=== PATIENT | female | born 1995 | race Caucasian/White ===

== ENCOUNTER 2020-07-26 10:08 | Emergency (ER) | payer OTHER, SELFPAY ==
[2020-07-26 10:24] VITALS: BP 122/85; PULSE 67; RESP 16; TEMP 36.6; O2SAT 99; BMI 32.8
--- NOTE | 2020-07-26 10:34 | ED.EYEPROB ---
HPI - Eye Problem General Chief complaint: Eye Problems Stated complaint: graves disease irritation eye Time Seen by Provider: 07/26/20 10:23 Source: patient Mode of arrival: ambulatory Limitations: no limitations History of Present Illness HPI Narrative: 24 y/o female with history of Grave's disease, s/p thyroidectomy presenting with right eye irritation and redness since yesterday. She feels like there is something in her eye. She has a history of right sided ptosis due to her Grave's and this is unchanged per patient. She is compliant with her medications. She is due to get surgery on her bilateral eyes on 08/09 for ptosis on the right and droopy eyelid on the left. She is followed by opthomology at [facility]. She currently denies vision changes, drainage, headache. Admits to cold intolerance but denies all other signs/symptoms of hypo/hyperthyroidism. MD chief complaint: eye pain and eye redness Onset (ago): day(s) (1) Onset description: gradual Duration: constant Location: right eye Eye Symptoms: burning, redness and foreign body sensation Mechanism: none Severity: mild Associated symptoms: headache Treatments Prior to Arrival: none Related Data Previous Rx's Medication Instructions Recorded gentamicin 1 applic TOPICAL TID #15 g 07/26/20 Allergies Allergy/AdvReac Type Severity Reaction Status Date / Time No Known Allergies Allergy Unverified 06/24/20 19:06 [No Known Allergies*] Review of Systems Review of Systems: Constitutional: No Fever, No Chills ENT/Mouth: No sore throat, No Rhinorrhea, No Swallowing Difficulty Eyes: + Eye Pain, + Swelling, + Redness Cardiovascular: No Chest Pain, No SOB, No Orthopnea, No Edema Respiratory: No Cough, No Sputum, No Wheezing, No dyspnea Gastrointestinal: No Nausea, No Vomiting, No Diarrhea, No abdominal Pain, No Hematochezia, No Melena Genitourinary: No Dysuria, No Urinary Frequency, No Hematuria Musculoskeletal: No joint pain, No Myalgias Skin: No Skin Lesions, No rash Neuro: No Weakness, No Numbness, No Dizziness, No Headache Psych: No Anxiety/Panic, No Depression Heme/Lymph: No Bruising, No Lymphadenopathy Endocrine: No Polyuria, No Polydipsia, +cold intolerance, no hair loss, no weight gain [facility] Past Medical History Medical History (Updated 07/26/20 @ 12:45 by LETTY Alex) Graves disease Surgical History (Updated 07/26/20 @ 10:29 by Atul Freeman) H/O thyroidectomy Social History Social History Advance Directives: No Advance Directives Information Provided: No Physical Exam Vital Signs: Vital Signs: Vital Signs Temp Pulse Resp BP Pulse Ox 07/26/20 12:32 98.2 F 61 18 130/91 H 100 07/26/20 10:24 98 F 67 16 122/85 99 Body Mass Index 32.8 Appearance: Alert. Oriented X3. No acute distress. Eyes: Pupils equal, round and reactive to light. right eye ptosis. left superior eye lid dropping. Fluorescene exam shows small corneal abrasion inferiorly/medially. ENT: Pharynx normal. Neck: Normal inspection. Neck supple. CVS: Normal heart rate and rhythm. Pulses normal. Respiratory: No respiratory distress. Breath sounds normal. Abdomen: Soft and nontender. +BS x4 Skin: Skin warm and dry. Normal skin color. Normal skin turgor. No rashes. Extremities: No lower extremity edema. Neuro: Oriented X 3. No motor deficit. No sensory deficit. Course Course Course Narrative: fluorscene exam showed small corneal abrasion. Labs show elevated TSH 38 but T4 is normal. Will give Rx for abx drop to help prevent infection. She will f/u with her automotive technology instructor & life science taxonomist this week. MDM - Eye Problem Lab Data Result diagrams: 07/26/20 10:41 07/26/20 10:41 Labs: Lab Results 07/26/20 07/26/20 07/26/20 Range/Units 10:41 10:41 10:41 WBC 7.1 (4.8-10.8) X10*3/uL RBC 4.17 L (4.20-5.50) X10*6/uL Hgb 12.5 (12.0-16.0) g/dl Hct 38.3 (37-47) % MCV 91.8 (80-98) fL MCH 30.0 (27.0-33.0) pg MCHC 32.6 (31.0-35.0) g/dl RDW 13.3 (11.0-16.0) % Plt Count 190 (160-400) X10*3/uL MPV 11.9 (9.4-12.3) fL Immature Gran % (Auto) 0.3 (0.0-0.4) % Neut % (Auto) 72.3 (45-73) % Lymph % (Auto) 19.5 L (20-40) % [place] % (Auto) 7.8 (2-11) % Eos % (Auto) 0.0 (0-4) % Baso % (Auto) 0.1 (0-2) % Lymph # (Auto) 1.4 (1.2-4.9) X10*3/uL [place] # (Auto) 0.6 (0.1-1.2) X10*3/uL Eos # (Auto) 0.0 (0.0-0.4) X10*3/uL Baso # (Auto) 0.0 (0.0-0.2) X10*3/uL Abs Immat Gran (auto) 0.02 (0.00-0.03) X10*3/uL Absolute Neuts (auto) 5.1 (2.0-8.3) X10*3/uL Absolute Nucleated RBC 0.000 (0.0-0.012) X10*3/uL Nucleated RBC % (auto) 0.0 (0.0-0.2) /100WBC Sodium 138 (135-145) mmol/L Potassium 4.2 (3.3-5.1) mmol/l Chloride 104 (96-108) mmol/L Carbon Dioxide 27 (22-29) mmol/L Anion Gap 11 L (12-20) BUN 9 (9-16) mg/dL Creatinine 0.65 (0.5-1.4) mg/dL Estim Creat Clear Calc 139.3 Estimated GFR > 60 Random Glucose 88 (60-115) mg/dL Calcium 8.3 L (8.4-10.2) mg/dL TSH 39.27 H (0.32-4.0) mIU/mL Free T4 0.81 (0.71-1.85) ng/dL Discharge Plan Discharge Clinical Impression: Corneal abrasion Qualifiers: Encounter type: initial encounter Laterality: right Qualified Code(s): S05.01XA - Injury of conjunctiva and corneal abrasion without foreign body, right eye, initial encounter Patient Disposition: Home, Self-Care Instructions: Corneal Abrasion (ED) Additional Instructions: Use saline eye drops three times per day to keep your eye moistened. Use the antibiotic drop to help prevent infection, Follow up with your eye doctor this week. Follow up with your Project Management Specialist this week. Prescriptions: New gentamicin 0.1 % ointment 1 applic topical TID Qty: 15 RF: 0 Interventions: ED Discharge Assessment Last Done: 07/26/20 12:54
[2020-07-26 10:51] LABS: MANUAL DIFF FLAG NO
[2020-07-26 10:56] LABS: Basophils Percent Auto 0.1 % (0-2); Hematocrit 38.3 % (37-47); Hemoglobin 12.5 g/dl (12.0-16.0); Imm Gran Abs Auto 0.02 X10*3/uL (0.00-0.03); Imm Gran Pct Auto 0.3 % (0.0-0.4); Lymphocytes Absolute Auto 1.4 X10*3/uL (1.2-4.9); Lymphocytes Percent Auto 19.5 % (20-40); Mean Corpuscular HGB Conc 32.6 g/dl (31.0-35.0); Mean Corpuscular Volume 91.8 fL (80-98); Mean Platelet Volume 11.9 fL (9.4-12.3); Monocytes Absolute Auto 0.6 X10*3/uL (0.1-1.2); Monocytes Percent Auto 7.8 % (2-11); Neutrophils Absolute Auto 5.1 X10*3/uL (2.0-8.3); Neutrophils Percent Auto 72.3 % (45-73); Platelet Count 190 X10*3/uL (160-400); Red Blood Count 4.17 X10*6/uL (4.20-5.50); Red Cell Distribution Width 13.3 % (11.0-16.0); White Blood Count 7.1 X10*3/uL (4.8-10.8)
[2020-07-26 11:21] LABS: Anion Gap 11 (12-20); Blood Urea Nitrogen 9 mg/dL (9-16); Calcium 8.3 mg/dL (8.4-10.2); Carbon Dioxide 27 mmol/L (22-29); Chloride 104 mmol/L (96-108); Creatinine Clr Calc Pharmacy 139.3; Estimated Glomerular Filt Rate > 60; Glucose Random 88 mg/dL (60-115); Potassium 4.2 mmol/l (3.3-5.1); Sodium 138 mmol/L (135-145)
[2020-07-26 11:42] LABS: TSH reflex Free T4 39.27 mIU/mL (0.32-4.0)
[2020-07-26 12:32] VITALS: BP 130/91; PULSE 61; RESP 18; TEMP 36.8; O2SAT 100
[2020-07-26 12:42] LABS: Free T4 (Free Thyroxine) 0.81 ng/dL (0.71-1.85)
[2020-07-26] MEDS: Fluorescein Sodium STRIP 1 STRIP EYE-RIGHT (12:44)
[2020-07-26] MEDS: Tetracaine HCl/PF 0.5% Oph Sol 4 ML DROPS 1 DROP EYE-RIGHT (12:44)
[2020-07-27 07:32] LABS: Triiodothyronine T3 Total 62 ng/dL (76-181)
== END 2020-07-26 13:02 | disposition home or self-care (01) ==
PROVIDERS: Physician Assistant; Emergency Provider Emergency Medicine; PCP Nurse Practitioner
DX: S05.01XA Injury of conjunctiva and corneal abrasion without foreign body, right eye, initial encounter (principal); H57.11 Ocular pain, right eye; G44.309 Post-traumatic headache, unspecified, not intractable; X58.XXXA Exposure to other specified factors, initial encounter; Y93.9 Activity, unspecified; Y92.9 Unspecified place or not applicable; Z79.899 Other long term (current) drug therapy
CPT/HCPCS: 36415; 80048; 84439; 84443; 84480; 85025; 99283

== ENCOUNTER 2020-07-30 15:23 | Outpatient (REF) | payer OTHER, SELFPAY ==
[2020-07-30 17:15] LABS: COVID-19 Test Negative (Negative)
== END 2020-07-30 15:24 | disposition home or self-care (01) ==
LOC: HO.LAB 15:23
PROVIDERS: Visit Provider Internal Medicine
DX: Z20.828 Contact with and (suspected) exposure to other viral communicable diseases (principal)
CPT/HCPCS: 87635

== ENCOUNTER 2020-09-06 11:21 | Outpatient (REF) | payer OTHER, SELFPAY | END 2020-09-06 11:22 | disposition home or self-care (01) | LOC: HO.LAB 11:21 | PROVIDERS: Visit Provider Internal Medicine | DX: Z20.828 Contact with and (suspected) exposure to other viral communicable diseases (principal) | CPT/HCPCS: C9803; U0003 ==

== ENCOUNTER 2021-07-29 02:02 | Inpatient (IN) | payer OTHER, SELFPAY ==
[2021-07-29 02:55] VITALS: BP 114/75; PULSE 63; RESP 16; TEMP 36.1; O2SAT 100; BMI 30.8
[2021-07-29] MEDS: traZODone HCL 50 MG TABLET PO (03:41)
[2021-07-29 06:00] VITALS: BP 108/54; PULSE 51; RESP 18; TEMP 36.4; O2SAT 97
--- NOTE | 2021-07-29 07:12 | PC.ADMIT ---
Pt is a 25 years old female transferred from [facility] with concerns of SI with a plan to stab herself. Tox negative, covid negative. Pt alert and oriented. pt reported being homeless and feeling helpless and hopeless. Upon admission pt denies SI/HI. Pt reports feeling depressed and low self esteem. speech is normal with normal rhythm and jone. Provider aviation ordnance officer notified, admission orders obtained.
[2021-07-29 08:46] LABS: MANUAL DIFF FLAG NO
[2021-07-29 09:00] LABS: Hematocrit 43.2 % (37-47); Imm Gran Abs Auto 0.01 X10*3/uL (0.00-0.03); Imm Gran Pct Auto 0.3 % (0.0-0.4); Lymphocytes Absolute Auto 1.4 X10*3/uL (1.2-4.9); Lymphocytes Percent Auto 39.3 % (20-40); Mean Corpuscular HGB Conc 32.4 g/dl (31.0-35.0); Mean Corpuscular Hemoglobin 29.7 pg (27.0-33.0); Mean Corpuscular Volume 91.5 fL (80-98); Mean Platelet Volume 12.4 fL (9.4-12.3); Monocytes Absolute Auto 0.3 X10*3/uL (0.1-1.2); Monocytes Percent Auto 9.4 % (2-11); Neutrophils Absolute Auto 1.8 X10*3/uL (2.0-8.3); Platelet Count 180 X10*3/uL (160-400); Red Blood Count 4.72 X10*6/uL (4.20-5.50); Red Cell Distribution Width 12.8 % (11.0-16.0); White Blood Count 3.6 X10*3/uL (4.8-10.8)
[2021-07-29 09:20] VITALS: BP 119/69; PULSE 80; RESP 16; TEMP 36.6; O2SAT 99
[2021-07-29] MEDS: Sulfamethox/Trimeth 800/160 TABLET 1 TAB PO ×2 (11:21→21:47)
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
[2021-07-29 18:00] VITALS: BP 116/64; PULSE 78; RESP 16; TEMP 36.2
[2021-07-29] MEDS: OLANZapine 10 MG TABLET PO (21:47)
[2021-07-29] MEDS: Topiramate 25 MG TABLET PO (21:47)
[2021-07-29] MEDS: LORazepam 1 MG TABLET PO (21:49)
[2021-07-30 06:00] VITALS: BP 114/73; PULSE 70; RESP 18; TEMP 36.6; O2SAT 98
[2021-07-30] MEDS: Levothyroxine Sodium 150 MCG TABLET PO (06:34)
[2021-07-30 07:51] LABS: Estimated Average Glucose 91 mg/dL; Hemoglobin A1c % 4.8 %
[2021-07-30 07:56] LABS: Alanine Aminotransferase 11 U/L (0-31); Albumin Level 4.2 g/dL (3.5-5.0); Alkaline Phosphatase 82 U/L (39-117); Anion Gap 13 (12-20); Aspartate Amino Transferase 15 U/L (5-31); Blood Urea Nitrogen 10 mg/dL (9-16); Carbon Dioxide 22 mmol/L (22-29); Chloride 104 mmol/L (96-108); Cholesterol 138 mg/dL; Creatinine Clr Calc Pharmacy 98.9; Estimated Glomerular Filt Rate > 60; Glucose Fasting 81 mg/dL (60-99); HDL Cholesterol 46 mg/dL; LDL Cholesterol Calculated 83 mg/dl; Potassium 4.7 mmol/L (3.3-5.1); Sodium 134 mmol/L (135-145); Total Protein 7.4 g/dL (6.5-8.0); Triglycerides 49 mg/dL
[2021-07-30 08:16] LABS: Free T4 (Free Thyroxine) 0.89 ng/dL (0.71-1.85)
[2021-07-30] MEDS: Multivitamin TABLET 1 TAB PO (09:05)
[2021-07-30] MEDS: Topiramate 25 MG TABLET PO ×2 (09:05→20:13)
[2021-07-30] MEDS: Thiamine HCL 100 MG TABLET PO (09:05)
[2021-07-30] MEDS: Sulfamethox/Trimeth 800/160 TABLET 1 TAB PO ×2 (13:49→20:13)
--- NOTE | 2021-07-30 19:03 | HO.PSYCHPN ---
Subjective Subjective Date of Service: 07/30/21 Reason For Visit: Bipolar Disorder, Substance Abuse Subjective Notes: Conditional Voluntary Medical Problems Affecting Mental Status: No Interim History: Barbie reports that she is feeling safe and that she is wondering when she can go home. Staff have reported that she appears depressed She is visible on the milieu Medication Compliance: Yes Side effects from medications: No Attending Groups: Intermittent Review of Systems Acute medical concerns: No Mental Status Exam Mental Status Exam Patient Appearance: Appropriate Patient Orientation: Person, Place, Time and Situation Level of Consciousness: Awake and Alert Patient Behavior: Appropriate, Talkative, Cooperative and Good Eye Contact Mood Description: Depressed and Anxious Affect Description: Flat Patient Cognition Impaired: No Ability to Follow Directions: Good Speech Pattern: Spontaneous Speech Memory Description: Intact Hallucinations: Auditory and Visual Delusions: Grandiose (reports hx) Thought Process: Rumination Thought Content: positive for Perseveration, negative for Suicidal Ideation or negative for Homicidal Ideation Depressive Symptoms: Increased Anxiety, Insomnia, Increased Irritability, Difficulty Sleeping, Hopelessness, Thoughts of /Suicide and Difficulty Concentrating Judgement: Fair Diagnostics Vital Signs (24Hr): Vital Signs - 24 hr 07/30/21 06:00 Temperature 98 F Pulse Rate 70 Respiratory Rate 18 Blood Pressure 114/73 Pulse Oximetry 98 Body Mass Index 30.8 Labs Results: 07/29/21 08:07 07/30/21 07:11 Labs: Laboratory Results - last 48 hr 07/29/21 07/30/21 07/30/21 08:07 07:11 07:11 WBC 3.6 L RBC 4.72 Hgb 14.0 Hct 43.2 MCV 91.5 MCH 29.7 MCHC 32.4 RDW 12.8 Plt Count 180 MPV 12.4 H Immature Gran % (Auto) 0.3 Neut % (Auto) 51.0 Lymph % (Auto) 39.3 [place] % (Auto) 9.4 Eos % (Auto) 0.0 Baso % (Auto) 0.0 Lymph # (Auto) 1.4 [place] # (Auto) 0.3 Eos # (Auto) 0.0 Baso # (Auto) 0.0 Abs Immat Gran (auto) 0.01 Absolute Neuts (auto) 1.8 L Absolute Nucleated RBC 0.000 Nucleated RBC % (auto) 0.0 Sodium 134 L Potassium 4.7 Chloride 104 Carbon Dioxide 22 Anion Gap 13 BUN 10 Creatinine 0.88 Estim Creat Clear Calc 98.9 Estimated GFR > 60 Fasting Glucose 81 Estimat Average Glucose 91 Hemoglobin A1c % 4.8 Calcium 9.0 D Total Bilirubin 1.0 AST 15 ALT 11 Alkaline Phosphatase 82 Total Protein 7.4 Albumin 4.2 Triglycerides 49 Cholesterol 138 LDL Cholesterol, Calc 83 HDL Cholesterol 46 Free T4 0.89 Medications Medications Current Medications Acetaminophen (Acetaminophen 325 Mg Tablet) 650 mg PO Q6H PRN PRN Reason: Headache/Pain Mild Scale (1-3) Al Hydroxide/Mg Hydroxide (Magnesium Hydrox/Alum Hydrox 30 Ml Oral.Susp) 30 ml PO Q6H PRN PRN Reason: Heartburn/Nausea Hydroxyzine HCl (Hydroxyzine Hcl 50 Mg Tablet) 50 mg PO TID PRN PRN Reason: Anxiety Levothyroxine Sodium (Levothyroxine Sodium 150 Mcg Tablet) 150 mcg PO DAILY@0600 [facility] Last Admin: 07/30/21 06:34 Dose: 150 mcg Documented by: Lorazepam (Lorazepam 1 Mg Tablet) 1 mg PO Q6H PRN PRN Reason: Alcohol Withdrawal Last Admin: 07/29/21 21:49 Dose: 1 mg Documented by: Magnesium Hydroxide (Milk Of Magnesia 30 Ml Oral.Susp) 30 ml PO DAILY PRN PRN Reason: Constipation Multivitamins/Vitamin C (Multivitamin Tablet) 1 tab PO DAILY [facility] Last Admin: 07/30/21 09:05 Dose: 1 tab Documented by: Olanzapine (Olanzapine 10 Mg Tablet) 10 mg PO BEDTIME [facility] Last Admin: 07/29/21 21:47 Dose: 10 mg Documented by: Thiamine HCl (Thiamine Hcl 100 Mg Tablet) 100 mg PO DAILY [facility] Last Admin: 07/30/21 09:05 Dose: 100 mg Documented by: Topiramate (Topiramate 25 Mg Tablet) 25 mg PO BID [facility] Last Admin: 07/30/21 09:05 Dose: 25 mg Documented by: Trazodone HCl (Trazodone Hcl 50 Mg Tablet) 50 mg PO BEDTIME PRN PRN Reason: Insomnia Last Admin: 07/29/21 03:41 Dose: 50 mg Documented by: Trimethoprim/Sulfamethoxazole (Sulfamethox/Trimeth 800/160 Tablet) 1 tab PO Q12H [facility] Stop: 08/03/21 20:00 Last Admin: 07/30/21 13:49 Dose: 1 tab Documented by: Allergies Allergies Allergy/AdvReac Type Severity Reaction Status Date / Time No Known Allergies Allergy Unverified 06/24/20 19:06 [No Known Allergies*] Assessment & Plan Assessment & Plan (1) Bipolar disorder: Status: Acute Code(s): F31.9 - Bipolar disorder, unspecified Assessment and Plan: Pt describes rapid cycling sx (2) PTSD (post-traumatic stress disorder): Status: Acute Code(s): F43.10 - Post-traumatic stress disorder, unspecified (3) Alcohol use disorder, severe, dependence: Status: Acute Code(s): F10.20 - Alcohol dependence, uncomplicated Assessment and Plan: ~4 days per week, 5-6 shots, Cognac (4) Cocaine abuse: Status: Acute Code(s): F14.10 - Cocaine abuse, uncomplicated Assessment and Plan: to assist in mgt of depressive sx. (5) Cannabis use disorder, severe, dependence: Status: Acute Code(s): F12.20 - Cannabis dependence, uncomplicated Assessment and Plan: Regular use to help with mood mgt. Assessment and Plan: 25 yo female with reports of bipolar disorder, mood cycling ~ every few weeks, PTSD, Alcohol, Cannabis, Cocaine use disorder and a history of ADHD. Pt reports recent SI and failed Lamictal trial~2 weeks (50 mg). Pt also with Graves Disease s/p thyroidectomy and current UTI. Plan: Olanzapine 10 mg HS for mood stabilization CIWA MVI i tab daily Thiamine 100 mg daily Lorazepam 1 mg 1 6 prn withdrawal sx Topamax 25 mg bid to assist with cocaine craving TSH elevated at [facility] 15.10/ FT4 0.96. 07/28/21. Pt reports inconsistent compliance with levothyroxine. Will repeat values on 08/01 No change to above treatment plan I spent 10_ minutes with the patient and/or on the patient floor today, greater than?50% of which was spent counseling/coordinating care. Patient educated on: diagnosis and medication risk/benefits Informed Consent: further education needed Reason for contiued inpatient stay Substantial Risk for: rapid decompensation
[2021-07-30 19:07] VITALS: BP 115/65; PULSE 115
[2021-07-30] MEDS: OLANZapine 10 MG TABLET PO (20:13)
[2021-07-30] MEDS: traZODone HCL 50 MG TABLET PO (20:44)
[2021-07-31] MEDS: Levothyroxine Sodium 150 MCG TABLET PO (04:05)
[2021-07-31] MEDS: hydrOXYzine HCL 50 MG TABLET PO (04:05)
[2021-07-31 06:00] VITALS: BP 115/77; PULSE 85; RESP 16; TEMP 36.2; O2SAT 98
[2021-07-31] MEDS: Multivitamin TABLET 1 TAB PO (08:47)
[2021-07-31] MEDS: Thiamine HCL 100 MG TABLET PO (08:47)
[2021-07-31] MEDS: Topiramate 25 MG TABLET PO ×2 (08:47→22:19)
[2021-07-31] MEDS: LORazepam 1 MG TABLET PO (08:52)
[2021-07-31] MEDS: Sulfamethox/Trimeth 800/160 TABLET 1 TAB PO ×2 (12:20→22:19)
[2021-07-31 18:00] VITALS: BP 104/69; TEMP 36.3; O2SAT 100
--- NOTE | 2021-07-31 18:56 | HO.PSYCHPN ---
Subjective Subjective Date of Service: 07/31/21 Reason For Visit: Bipolar Disorder, Substance Abuse Subjective Notes: Conditional Voluntary Medical Problems Affecting Mental Status: No Interim History: Barbie is anxious to be able to get DC tomorrow. She reports that she is feeling much improved and she has no SI. She is anxious to be able to go to a long awaited appointment with her surgeon. She has Graves Disease and marked exophthalmos of the right eye. She has had previous surgery which is failing and she needs repair since stitches are scratching her eye, causing discomfort. She has waited two to three months for this appointment. Medication Compliance: Yes Side effects from medications: No Attending Groups: Yes Review of Systems Acute medical concerns: No Mental Status Exam Mental Status Exam Patient Appearance: Appropriate Patient Orientation: Person, Place, Time and Situation Level of Consciousness: Awake and Alert Patient Behavior: Appropriate, Talkative, Cooperative and Good Eye Contact Mood Description: Depressed and Anxious Affect Description: Flat Patient Cognition Impaired: No Ability to Follow Directions: Good Speech Pattern: Spontaneous Speech Memory Description: Intact Hallucinations: None Delusions: Not Present Thought Process: Rumination Thought Content: negative for Suicidal Ideation or negative for Homicidal Ideation Depressive Symptoms: Increased Anxiety Judgement: Fair Diagnostics Vital Signs (24Hr): Vital Signs - 24 hr 07/30/21 19:07 07/31/21 06:00 Temperature 97.1 F Pulse Rate 115 H 85 Respiratory Rate 16 Blood Pressure 115/65 115/77 Pulse Oximetry 98 Body Mass Index 30.8 Labs Results: 07/29/21 08:07 07/30/21 07:11 Labs: Laboratory Results - last 48 hr 07/30/21 07/30/21 07:11 07:11 Sodium 134 L Potassium 4.7 Chloride 104 Carbon Dioxide 22 Anion Gap 13 BUN 10 Creatinine 0.88 Estim Creat Clear Calc 98.9 Estimated GFR > 60 Fasting Glucose 81 Estimat Average Glucose 91 Hemoglobin A1c % 4.8 Calcium 9.0 D Total Bilirubin 1.0 AST 15 ALT 11 Alkaline Phosphatase 82 Total Protein 7.4 Albumin 4.2 Triglycerides 49 Cholesterol 138 LDL Cholesterol, Calc 83 HDL Cholesterol 46 Free T4 0.89 Medications Medications Current Medications Acetaminophen (Acetaminophen 325 Mg Tablet) 650 mg PO Q6H PRN PRN Reason: Headache/Pain Mild Scale (1-3) Al Hydroxide/Mg Hydroxide (Magnesium Hydrox/Alum Hydrox 30 Ml Oral.Susp) 30 ml PO Q6H PRN PRN Reason: Heartburn/Nausea Hydroxyzine HCl (Hydroxyzine Hcl 50 Mg Tablet) 50 mg PO TID PRN PRN Reason: Anxiety Last Admin: 07/31/21 04:05 Dose: 50 mg Documented by: Levothyroxine Sodium (Levothyroxine Sodium 150 Mcg Tablet) 150 mcg PO DAILY@0600 [facility] Last Admin: 07/31/21 04:05 Dose: 150 mcg Documented by: Lorazepam (Lorazepam 1 Mg Tablet) 1 mg PO Q6H PRN PRN Reason: Alcohol Withdrawal Last Admin: 07/31/21 08:52 Dose: 1 mg Documented by: Magnesium Hydroxide (Milk Of Magnesia 30 Ml Oral.Susp) 30 ml PO DAILY PRN PRN Reason: Constipation Multivitamins/Vitamin C (Multivitamin Tablet) 1 tab PO DAILY [facility] Last Admin: 07/31/21 08:47 Dose: 1 tab Documented by: Olanzapine (Olanzapine 10 Mg Tablet) 10 mg PO BEDTIME [facility] Last Admin: 07/30/21 20:13 Dose: 10 mg Documented by: Thiamine HCl (Thiamine Hcl 100 Mg Tablet) 100 mg PO DAILY [facility] Last Admin: 07/31/21 08:47 Dose: 100 mg Documented by: Topiramate (Topiramate 25 Mg Tablet) 25 mg PO BID [facility] Last Admin: 07/31/21 08:47 Dose: 25 mg Documented by: Trazodone HCl (Trazodone Hcl 50 Mg Tablet) 50 mg PO BEDTIME PRN PRN Reason: Insomnia Last Admin: 07/30/21 20:44 Dose: 50 mg Documented by: Trimethoprim/Sulfamethoxazole (Sulfamethox/Trimeth 800/160 Tablet) 1 tab PO Q12H [facility] Stop: 08/03/21 20:00 Last Admin: 07/31/21 12:20 Dose: 1 tab Documented by: Allergies Allergies Allergy/AdvReac Type Severity Reaction Status Date / Time No Known Allergies Allergy Unverified 06/24/20 19:06 [No Known Allergies*] Assessment & Plan Assessment & Plan (1) Bipolar disorder: Status: Acute Code(s): F31.9 - Bipolar disorder, unspecified Assessment and Plan: Pt describes rapid cycling sx (2) PTSD (post-traumatic stress disorder): Status: Acute Code(s): F43.10 - Post-traumatic stress disorder, unspecified (3) Alcohol use disorder, severe, dependence: Status: Acute Code(s): F10.20 - Alcohol dependence, uncomplicated Assessment and Plan: ~4 days per week, 5-6 shots, Cognac (4) Cocaine abuse: Status: Acute Code(s): F14.10 - Cocaine abuse, uncomplicated Assessment and Plan: to assist in mgt of depressive sx. (5) Cannabis use disorder, severe, dependence: Status: Acute Code(s): F12.20 - Cannabis dependence, uncomplicated Assessment and Plan: Regular use to help with mood mgt. Assessment and Plan: 25 yo female with reports of bipolar disorder, mood cycling ~ every few weeks, PTSD, Alcohol, Cannabis, Cocaine use disorder and a history of ADHD. Pt reports recent SI and failed Lamictal trial~2 weeks (50 mg). Pt also with Graves Disease s/p thyroidectomy and current UTI. Plan: Olanzapine 10 mg HS for mood stabilization CIWA MVI i tab daily Thiamine 100 mg daily Lorazepam 1 mg 1 6 prn withdrawal sx Topamax 25 mg bid to assist with cocaine craving TSH elevated at [facility] 15.10/ FT4 0.96. 07/28/21. Pt reports inconsistent compliance with levothyroxine. Will repeat values on 08/0107/30/21: No change to above treatment plan 07/31/21: Consider DC tomorrow so that individual can go to her appointment at 3pm, to have her eye examined I spent minutes with the patient and/or on the patient floor today, greater than?50% of which was spent counseling/coordinating care. Patient educated on: diagnosis and medication risk/benefits Informed Consent: understands Reason for contiued inpatient stay Substantial Risk for: rapid decompensation
[2021-07-31] MEDS: traZODone HCL 50 MG TABLET PO (22:19)
[2021-07-31] MEDS: OLANZapine 10 MG TABLET PO (22:19)
[2021-08-01 06:00] VITALS: BP 102/77; PULSE 95; TEMP 36.3; O2SAT 99
[2021-08-01] MEDS: Levothyroxine Sodium 150 MCG TABLET PO (06:55)
[2021-08-01] MEDS: Topiramate 25 MG TABLET PO (08:48)
[2021-08-01] MEDS: Multivitamin TABLET 1 TAB PO (08:48)
[2021-08-01] MEDS: Thiamine HCL 100 MG TABLET PO (08:48)
[2021-08-01 09:01] LABS: TSH reflex Free T4 17.29 uIU/mL (0.32-4.0); Thyroid Stimulating Hormone 17.11 uIU/mL (0.32-4.0)
[2021-08-01 09:05] LABS: Folate 5.8 ng/mL (> or = 4.0); Vitamin B12 228 pg/mL (200-900)
[2021-08-01 09:33] LABS: Free T4 (Free Thyroxine) 1.15 ng/dL (0.71-1.85)
[2021-08-01] MEDS: Sulfamethox/Trimeth 800/160 TABLET 1 TAB PO (14:04)
--- NOTE | 2021-08-01 15:57 | PM.PSYDC ---
DS: Providers Provider Date of Service: 08/01/21 Date of admission: 07/29/21 02:02 Date of discharge: 08/01/21 Primary care physician: Deidra Brantley NP Admitting clinician: Zaria Blackwood Attending physician on admission: Porfirio Samuel Consults: 07/29/21 10:58 Consult to Hospitalist Routine Consulting Provider: Hospitalist Reason For Exam: [facility] transfer Attending physician on discharge: Porfirio Samuel Discharging clinician: Zaria Blackwood DS: Diagnosis Discharge Diagnosis (1) Bipolar disorder: Status: Acute (2) PTSD (post-traumatic stress disorder): Status: Acute (3) Alcohol use disorder, severe, dependence: Status: Acute (4) Cocaine abuse: Status: Acute (5) Cannabis use disorder, severe, dependence: Status: Acute DS: Medications Discharge Medications Home Medications: Previous Rx's Medication Instructions Recorded gentamicin 0.1 % topical ointment 1 applic TOPICAL TID #15 g 07/26/20 levothyroxine 150 mcg tablet 150 mcg PO DAILY@0600 #30 tab 08/01/21 multivitamin (Daily-Víctor) 1 tab PO DAILY #30 tab 08/01/21 naltrexone 50 mg tablet 50 mg PO DAILY #30 tab 08/01/21 olanzapine 10 mg tablet 10 mg PO BEDTIME #15 tab 08/01/21 sulfamethoxazole 800 1 tab PO Q12H #6 tab 08/01/21 mg-trimethoprim 160 mg tablet thiamine mononitrate (vit B1) 100 100 mg PO DAILY #30 tab 08/01/21 mg tablet topiramate 25 mg tablet 25 mg PO BID #60 tab 08/01/21 Mental Status Exam Mental Status Exam Patient Appearance: Appropriate Patient Orientation: Person, Place, Time and Situation Level of Consciousness: Awake and Alert Patient Behavior: Appropriate, Talkative, Cooperative and Good Eye Contact Mood Description: Depressed and Anxious Affect Description: Flat Patient Cognition Impaired: No Ability to Follow Directions: Good Speech Pattern: Spontaneous Speech Memory Description: Intact Hallucinations: None Delusions: Not Present Thought Process: Rumination Thought Content: negative for Suicidal Ideation or negative for Homicidal Ideation Depressive Symptoms: Increased Anxiety Judgement: Fair Data Data Completed and Pending Completed studies during hospitalization [Text1]: 07/29/21 07/30/21 07/30/21 08:07 07:11 07:11 WBC 3.6 L RBC 4.72 Hgb 14.0 Hct 43.2 MCV 91.5 MCH 29.7 MCHC 32.4 RDW 12.8 Plt Count 180 MPV 12.4 H Immature Gran % (Auto) 0.3 Neut % (Auto) 51.0 Lymph % (Auto) 39.3 [place] % (Auto) 9.4 Eos % (Auto) 0.0 Baso % (Auto) 0.0 Lymph # (Auto) 1.4 [place] # (Auto) 0.3 Eos # (Auto) 0.0 Baso # (Auto) 0.0 Abs Immat Gran (auto) 0.01 Absolute Neuts (auto) 1.8 L Absolute Nucleated RBC 0.000 Nucleated RBC % (auto) 0.0 Sodium 134 L Potassium 4.7 Chloride 104 Carbon Dioxide 22 Anion Gap 13 BUN 10 Creatinine 0.88 Estim Creat Clear Calc 98.9 Estimated GFR > 60 Fasting Glucose 81 Estimat Average Glucose 91 Hemoglobin A1c % 4.8 Calcium 9.0 D Total Bilirubin 1.0 AST 15 ALT 11 Alkaline Phosphatase 82 Total Protein 7.4 Albumin 4.2 Triglycerides 49 Cholesterol 138 LDL Cholesterol, Calc 83 HDL Cholesterol 46 Vitamin B12 Folate TSH Free T4 0.89 07/30/21 08/01/21 08/01/21 07:11 08:01 08:01 WBC RBC Hgb Hct MCV MCH MCHC RDW Plt Count MPV Immature Gran % (Auto) Neut % (Auto) Lymph % (Auto) [place] % (Auto) Eos % (Auto) Baso % (Auto) Lymph # (Auto) [place] # (Auto) Eos # (Auto) Baso # (Auto) Abs Immat Gran (auto) Absolute Neuts (auto) Absolute Nucleated RBC Nucleated RBC % (auto) Sodium Potassium Chloride Carbon Dioxide Anion Gap BUN Creatinine Estim Creat Clear Calc Estimated GFR Fasting Glucose Estimat Average Glucose Hemoglobin A1c % Calcium Total Bilirubin AST ALT Alkaline Phosphatase Total Protein Albumin Triglycerides Cholesterol LDL Cholesterol, Calc HDL Cholesterol Vitamin B12 228 Folate 5.8 TSH 17.11 H 17.29 H Free T4 1.15 DS: Summary Hospital Course Hospital Course: Admission to adult psychiatry to address symptoms of PTSD, Bipolar Disorder, Alcohol, Cocaine and Cannabis use. Care plan, medication regime and out patient plan of care prior to admission were reviewed. Education was provided regarding managment of symptoms, medications and side effects. Nursing and social media project manager worked extensively with patient on collateral contacts, plan of care, education regarding management of symptoms, medications and discharge planning. Naltrexone, Olanzapine and Topiramate were initiated. Time spent discussing smoking cessation with patient: 3 to 10 minutes Status at Discharge Cognitive/behavioral status at discharge: non-psychotic, non suicidal Time Spent with Patient Time attestation: Total time spent providing and/or coordinating discharge services: Discharge Plan Discharge Anticipated Discharge Date/Time: 08/01/21 14:00 Patient Disposition: Home, Self-Care Discharge Diagnosis: Bipolar Disorder PTSD Alcohol Use Disorder-Severe Cocaine Use Disorder-Moderate Cannabis Use Disorder-Moderate Referrals: Deidra Brantley, [employer]RO[employer] ANALYST [Primary Care Provider] - 1 Week ([facility] AWARE OF DISCHARGE . THIS VICE PRESIDENT OF RECRUITING LEFT A MESSAGE TO CALL US BACK WITH A FOLLOW-UP APPOINTMENT.08/01/21 0915.) Discharge Medications: New multivitamin [Daily-Víctor] Tablet 1 tab PO DAILY Qty: 30 RF: 0 olanzapine 10 mg Tablet 10 mg PO BEDTIME Qty: 15 RF: 1 topiramate 25 mg Tablet 25 mg PO BID Qty: 60 RF: 0 sulfamethoxazole-trimethoprim 800-160 mg Tablet 1 tab PO Q12H Qty: 6 RF: 0 levothyroxine 150 mcg Tablet 150 mcg PO DAILY@0600 Qty: 30 RF: 0 thiamine mononitrate (vit B1) 100 mg Tablet 100 mg PO DAILY Qty: 30 RF: 0 naltrexone 50 mg tablet 50 mg PO DAILY Qty: 30 RF: 0 Continued gentamicin 0.1 % ointment 1 applic topical TID Qty: 15 RF: 0 Discharge Orders: Discharge Order (Routine); Ordered 08/01/21 Ordered By: Zaria Blackwood Diet: advance to usual diet Activity on Discharge: As tolerated Stand Alone Forms: Patient Portal Discharge page, Community Support Care Plan Goals: Mood Stability Sobriety Health Concerns: Bipolar Disorder PTSD Alcohol, Cannabis, Cocaine Use Disorder Plan of Treatment: Take medications as directed Follow up with out patient appointments Assessment: Alert, oriented, non-psychotic, non-suicidal. 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 Patient Instructions: Naltrexone (By mouth), Olanzapine (By mouth), Topiramate (By mouth) Discharge Date/Time: 08/01/21 13:15
== END 2021-08-01 13:15 | disposition home or self-care (01) | DRG 753 ==
PROVIDERS: Psychiatry & Neurology Psychiatry; Admitting Provider Clinical Nurse Specialist Psychiatric/Mental Health, Adult; PCP Nurse Practitioner; Visit Provider Clinical Nurse Specialist Psychiatric/Mental Health, Adult
DX: F31.9 Bipolar disorder, unspecified (principal); R45.851 Suicidal ideations; F14.20 Cocaine dependence, uncomplicated; E89.0 Postprocedural hypothyroidism; N39.0 Urinary tract infection, site not specified; F43.10 Post-traumatic stress disorder, unspecified; F10.20 Alcohol dependence, uncomplicated; F12.20 Cannabis dependence, uncomplicated; Z23 Encounter for immunization; Z59.02 Unsheltered homelessness; Z79.890 Hormone replacement therapy; Z79.899 Other long term (current) drug therapy
CPT/HCPCS: 36415; 80053; 80061; 82607; 82746; 83036; 84439; 84443; 85025; 90686

== ENCOUNTER 2022-12-28 11:00 | Outpatient (RCR) | payer OTHER, SELFPAY ==
[2022-12-18 11:44] VITALS: BP 104/64; PULSE 76; TEMP 36.9
[2022-12-18 11:57] VITALS: BMI 31.9
--- NOTE | 2022-12-18 12:32 | PC.ADMIT ---
Patient is a 27 year old female who has a dx of Bipolar disorder and is struggling with increased depression and is using substances to cope with how she is feeling. See Intergrative Assessment for more information. Patient presents with depressed mood and tearful affect. Denied SI or thoughts to harm herself. Stated she needs to distract herself all the time as she is struggling with increased anxiety. Barbie is taking a leave of absence from her job to work on her mental health. Reports struggling with Cocaine use stating she has been using this daily to help her focus. Stated she was on Vyvanse in the past and did not use cocaine for a month when she was on this medication as she was able to focus. Stated she has been using Marijauna 2-3 times a day and is drinking alcohol on the weekends. In addition, she reports binging on Xanaz 2 5 mg tablets every few months. Patent wants to stop using substances. I gave her written and verbal education about poly-substance use. Patient reports poor sleep and appetite. Patient stated she is taking her medical medications as prescribed. Denied being on any psychiatric medications currently. Patient given a copy of her safety plan if needed and I reviewed her safety plan with her.
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
--- NOTE | 2022-12-22 08:45 | HO.PHP ---
The clients case was reviewed and opened in treatment team
--- NOTE | 2022-12-22 09:57 | PC.NURSE ---
Patient got a ride into the program from a friend. She stated she came in to the program today as she did not have a phone to call the program to say she would not be here today. She stated she lost her phone however someone found it thus she will be getting her phone back today. She stated to staff she thought she was detoxing from Xanax and cocaine. Reports she has been using Xanax bars that she buys off the streets taking a quarter of a bar 4 times a day. Reports last use of Xanax was Sunday. Stated she uses cocaine 1 gram 3 times a week and last use of cocaine was on Sunday. Patient is alert and ortiented x4. Calm and cooperative. Denied SI or thoughts to harm herself. At 0900 BP 92/60 P 84. Diaphoretic (patient has her winter coat on). Patient stated she feels, hot and cold T 97.2. Recommended Barbie go to the emergency room for a medical evaluation. Patient stated she does not want to go to the ER. I educated Laura on the dangers of Xanax withdrawal and how it could be lethal. Patient continued to refuse treatment in the ER. Wanted to wait it out at her home as she has done in the past. I also recommended detox however patient did not want to go to detox. She stated she is starting a new job on Sunday. I gave Laura a list of detoxes to call if she changed her mind. Laura stated if she feels worse she will go to the ER. Checked pulse again at 10:00 P 72. Patient is no longer diaphoretic at present, winter coat has been off. She is currently waiting for a ride from her friend to pick her up from the program. Patient does have Narcan if needed. She stated she will not be alone when home. Consulted with Rosa Flynn CNP and reviewed the aforementioned information. No other recommendations per Rosa. Reviewed the above information with director Sonal Rucker and Brittny Boyle entry level programmer.
[2022-12-22 14:39] LABS: Amphetamine Screen Urine Not Detected (Not Detect); Barbiturates, Urine Not Detected (Not Detect); Benzodiazepines Screen Urine Not Detected (Not Detect); Cannabinoid Screen Urine POSITIVE (Not Detect); Cocaine Screen Urine Not Detected (Not Detect); Fentanyl, urine Not Detected (Not Detect); Opiate Screen Urine Not Detected (Not Detect); Phencyclidine Screen Urine Not Detected (Not Detect)
--- NOTE | 2023-01-01 09:51 | HO.PHP ---
I called an left a message for Barbie to call re her absence from the program.
--- NOTE | 2023-01-02 10:35 | HO.PHP ---
I left a message for Barbie to call to let us know that she is okay and her plans for discharge.
== END 2022-12-28 23:59 | disposition home or self-care (01) ==
LOC: HO.PHPA 11:00
PROVIDERS: Nurse Practitioner Psychiatric/Mental Health; Visit Provider Psychiatry & Neurology Psychiatry
DX: F31.9 Bipolar disorder, unspecified (principal); F43.10 Post-traumatic stress disorder, unspecified; F14.10 Cocaine abuse, uncomplicated; F13.10 Sedative, hypnotic or anxiolytic abuse, uncomplicated; F10.20 Alcohol dependence, uncomplicated; F12.20 Cannabis dependence, uncomplicated
CPT/HCPCS: 80307; 90791; 90853